=== PATIENT | female | born 2005 | race Two or more races ===

== ENCOUNTER → 2024-03-25 | Outpatient (CLI) | payer BC ==
[2024-03-25 09:31] LABS: Urine Bacteria None Seen /hpf (None Seen)
[2024-03-25 09:55] LABS: Urine Blood Negative /uL (Negative); Urine Clarity Turbid (Clear); Urine Color Light-Yellow (Yellow); Urine Mucus MODERATE (None Seen); Urine Protein, UAD Negative (Negative); Urine Specific Gravity 1.014 (1.001-1.035); Urine Urobilinogen Normal (Negative); Urine WBC 9 /hpf (0 - 5); Urine pH 5.5 (5.0-9.0)
[2024-03-25 09:59] LABS: Basophils # (auto) 0.1 10 ^3/uL (0-0.2); Eosinophils # (auto) 0.4 10 ^3/uL (0-0.8); Eosinophils % (auto) 5.7 % (0.0-7.0); Hematocrit 36.9 % (36.0-46.0); Hemoglobin 12.6 g/dL (12.2-16.2); Lymphocytes # (auto) 2.4 10 ^3/uL (0.4-5.4); Lymphocytes % (auto) 37.7 % (10.0-50.0); Mean Corpuscular Hgb Conc. 34.1 g/dL (32.0-36.0); Monocytes # (auto) 0.5 10 ^3/uL (0-1.3); Monocytes % (auto) 7.7 % (0.0-12.0); Neutrophils % (auto) 47.9 % (37.0-80.0); Platelet Count (auto) 301 10^3/uL (140-450); Red Blood Cells 4.05 10^6/uL (4.0-5.20); Red Cell Distribution Width 13.1 % (11.8-14.3); White Blood Cell 6.3 10^3/uL (4.4-10.8)
[2024-03-25 10:15] LABS: Alanine Aminotransferase 10 U/L (7-40); Albumin 4.6 g/dL (3.2-4.8); Alkaline Phosphatase 54 U/L (46-116); Anion Gap 6 (5-15); Bilirubin, Total 0.7 mg/dL (0.2-1.0); Calcium 10.3 mg/dL (8.7-10.4); Carbon Dioxide 26 mmol/L (20-31); Chloride 107 mmol/L (98-107); Cholesterol 190 mg/dL (< 200); Glucose 94 mg/dL (74-106); HDL Cholesterol 55 mg/dL (40-59); Sodium 139 mmol/L (136-145); Triglycerides 75 mg/dL (< 150)
[2024-03-25 10:17] LABS: Aspartate Aminotransferase 11 U/L (13-40); BUN/Creatinine Ratio 6.3 (10.0-20.0); Blood Urea Nitrogen < 5 mg/dL (9-23); LDL Cholesterol 123 mg/dL (< 100); Potassium 3.5 mmol/L (3.5-5.1)
[2024-03-25 13:04] LABS: Hepatitis B Surface Antigen Negative (Negative)
[2024-03-25 13:25] LABS: Hepatitis A Ab IgM Negative
[2024-03-25 13:26] LABS: Hepatitis B Core IgM Negative (Negative); Hepatitis C Antibody Negative (Negative)
== END | disposition home or self-care (01) ==
LOC: LAB 09:08
PROVIDERS: ATTEND Family Medicine
DX: Z13.31 Encounter for screening for depression (principal); F33.1 Major depressive disorder, recurrent, moderate; R45.851 Suicidal ideations; Z72.89 Other problems related to lifestyle
CPT/HCPCS: 36415; 80053; 80061; 80074; 81001; 82306; 82607; 83036; 84443; 85025